=== PATIENT | female | born 1985 | race Caucasian/White ===

== ENCOUNTER 2017-07-24 16:50 | Inpatient (IN) | payer BC ==
[~2017-07-24] VITALS: Ht 157.5 cm; Wt 68.0 kg
[2017-07-24] MEDS ORDERED: KETOROLAC TROMETHAMINE 30 MG/ML VIAL IV STA (17:07)
[2017-07-24] MEDS ORDERED: SODIUM CHLORIDE 0.9% 1000ML 1,000 ML IV STA ×2 (17:07→19:15)
[2017-07-24] MEDS ORDERED: CEFTRIAXONE SOD 1 GM VIAL IM ONE (17:15)
[2017-07-24] MEDS ORDERED: ONDANSETRON HCL 4 MG ORAL DISINTEGRATING TAB PO ONE (17:15)
[2017-07-24] MEDS ORDERED: ACETAMINOPHEN 325 MG TAB PO ONE (17:15)
[2017-07-24 17:41] LABS: CLARITY,URINE CLEAR (CLEAR); COLOR,URINE YELLOW (YELLOW); LEUKOCYTE ESTERASE ,URINE 1+ (NEGATIVE); NITRITE,URINE NEGATIVE (NEGATIVE); PROTEIN,URINE DIPSTICK 2+ (NEGATIVE)
[2017-07-24 17:42] LABS: BILIRUBIN,URINE NEGATIVE (NEGATIVE); KETONES,URINE NEGATIVE (NEGATIVE); PREGNANCY TEST, URINE NEGATIVE (NEGATIVE); URINE UROBILINOGEN 8 mg/dL (0.2 - 1)
--- NOTE | 2017-07-24 17:43 | Diagnostic Imaging Report ---
PROCEDURE: A single AP view of the chest. COMPARISON: None. INDICATIONS: ABDOMINAL PAIN FINDINGS: Lines/tubes: None. Lungs: The lungs are well inflated and clear. There is no evidence of pneumonia or pulmonary edema. Pleura: There is no pleural effusion or pneumothorax. Heart and mediastinum: The heart and the mediastinum are unremarkable. Bones: No acute bony abnormality. IMPRESSION: 1. No acute cardiopulmonary disease. Dictated by: Carlos Michaels M.D. on 07/24/2017 at 17:47 Electronically approved by: Carlos Michaels M.D. on 07/24/2017 at 17:47
[2017-07-24 17:53] LABS: BACTERIA,URINE FEW /HPF; EPITHELIAL CELLS,URINE FEW /LPF; MUCUS,URINE FEW (RARE)
[2017-07-24 18:13] LABS: BASOPHILS % 0.1 % (0.0-1.0); HEMATOCRIT 31.5 % (34.2-44.1); HEMOGLOBIN 9.7 g/dL (12.0-16.0); LYMPHOCYTES # (AUTO) 0.8 (1.0-3.2); LYMPHOCYTES % 4.6 % (18.0-39.1); MEAN CORPUSCULAR HEMOGLOBIN 22.3 pg (28-32); MEAN CORPUSCULAR HGB CONC 30.8 g/dL (31-35); MEAN CORPUSCULAR VOLUME 72.4 fL (81-99); MONOCYTES # (AUTO) 1.2 (0.2-0.8); MONOCYTES % 7.5 % (4.4-11.3); NEUTROPHILS # (AUTO) 14.1 (2.1-6.9); NEUTROPHILS % 87.2 % (38.7-80.0); PLATELET COUNT 259 x10e3/uL (140-360); RED BLOOD COUNT 4.35 x10e6/uL (3.6-5.1); RED CELL DISTRIBUTION WIDTH 16.6 % (11.7-14.4)
[2017-07-24 18:35] LABS: ALANINE AMINOTRANSFERASE 20 IU/L (0-55); ALBUMIN 3.2 g/dL (3.5-5.0); ALBUMIN/GLOBULIN RATIO 0.6 (0.8-2.0); ALKALINE PHOSPHATASE 124 IU/L (40-150); ANION GAP 15.6 mmol/L (8-16); BLOOD UREA NITROGEN 8 mg/dL (7-26); BUN/CREATININE RATIO 10 (6-25); CALCIUM 9.6 mg/dL (8.4-10.2); CARBON DIOXIDE 25 mmol/L (22-29); CHLORIDE 93 mmol/L (98-107); CREATININE, SERUM 0.83 mg/dL (0.57-1.11); EST GLOMERULAR FILTRATION RATE > 60 ML/MIN (60-); GLUCOSE 122 mg/dL (74-118); LIPASE 13 U/L (8-78); SODIUM 131 mmol/L (136-145)
[2017-07-24 18:38] LABS: POTASSIUM 2.6 mmol/L (3.5-5.1)
[2017-07-24] MEDS ORDERED: POTASSIUM CHLORIDE 20 MEQ TAB CR PO STA (19:15)
--- NOTE | 2017-07-24 20:33 | Diagnostic Imaging Report ---
EXAM: CT Abdomen and Pelvis WITH contrast INDICATION: Left abdominal pain and diarrhea COMPARISON: None. TECHNIQUE: Abdomen and pelvis were scanned utilizing a multidetector helical scanner from the lung base to the ischial tuberosities after administration of IV contrast. Coronal and sagittal reformations were obtained. Routine protocol was performed. Scan was performed when during portal venous phase. IV CONTRAST: 100 mL of Isovue-370 ORAL CONTRAST: Water RADIATION DOSE: Total DLP: 303.81 mGy*cm Estimated effective dose: DLP x 0.015 mSv COMPLICATIONS: None FINDINGS: LINES and TUBES: None. LOWER THORAX: The lungs and airways are normal. HEPATOBILIARY: No focal hepatic lesions. No biliary ductal dilation. GALLBLADDER: No radio-opaque stones or sludge. No wall thickening. SPLEEN: No splenomegaly. PANCREAS: No focal masses or ductal dilatation. ADRENALS: No adrenal nodules KIDNEYS/URETERS: Striated enhancement pattern of both kidneys, left greater than right. No hydronephrosis. Small hypodensities in the right kidney are too small to characterize, but likely represent cysts. No stones. GI TRACT: No abnormal distention, wall thickening, or evidence of bowel obstruction. Appendix is normal. PELVIC ORGANS/BLADDER: Unremarkable. LYMPH NODES: No lymphadenopathy. VESSELS: Unremarkable. PERITONEUM / RETROPERITONEUM: No free air or fluid. BONES: Unremarkable. SOFT TISSUES: Unremarkable. IMPRESSION: Findings suggestive of bilateral pyelonephritis, left worse than right., Signed by: Dr. Francisco J Higgins M.D. on 07/24/2017 8:29 PM
--- NOTE | 2017-07-24 20:46 | Diagnostic Imaging Report ---
EXAM: Right Upper Quadrant Ultrasound INDICATION: Abdominal pain COMPARISON: None. TECHNIQUE: Transverse and longitudinal images of the right upper abdomen were obtained. FINDINGS: Liver: Size: 16.9 cm in the right midclavicular line, borderline enlarged Appearance: Normal echogenicity, smooth contour Mass: No focal masses Gallbladder: Stones/Sludge: None Wall: 0.2 cm Appearance: No wall thickening, pericholecystic fluid or hydrops. Sonographic Ruby's Sign: Negative Bile Ducts: Intrahepatic Ducts: No dilatation Extrahepatic Ducts: Common bile duct measures 0.4 cm, no dilatation Pancreas: Visualized portions of the pancreatic neck and proximal body are normal. Kidneys: Length: Right 9.6 cm Echogenicity: Normal Collecting System: No hydronephrosis Stone: None Cyst/Mass: None Vessels: Aorta: Visualized portions are normal Inferior Vena Cava: Visualized portions are normal Main Portal Vein: 1.2 cm, normal size with hepatopetal flow. Free Fluid: No ascites or pleural effusion IMPRESSION: Borderline hepatomegaly. Otherwise normal right upper quadrant ultrasound. Signed by: Dr. Francisco J Higgins M.D. on 07/24/2017 8:43 PM
[2017-07-24] MEDS ORDERED: CEFTRIAXONE SOD 1 GM VIAL IV SCH (21:00)
[2017-07-24] MEDS ORDERED: ONDANSETRON HCL 4 MG ORAL DISINTEGRATING TAB PO PRN (21:00)
[2017-07-24] MEDS ORDERED: IOPAMIDOL 370 MG/ML 200 ML INFUS..BTL INJ ONE (22:25)
[2017-07-24] MEDS ORDERED: SODIUM CHLORIDE 0.9% 50ML 50 ML ONE (22:25)
[2017-07-24] MEDS: KCL 20MEQ/.9 SOD CHL 1,000 ML IV SCH (22:32)
[2017-07-25] MEDS: ACETAMINOPHEN 325 MG TAB PO PRN ×4 (03:45→20:11)
[2017-07-25] MEDS: KCL 20MEQ/.9 SOD CHL 1,000 ML IV SCH ×3 (06:00→21:00)
[2017-07-25 06:36] LABS: BASOPHILS % 0.3 % (0.0-1.0); HEMATOCRIT 25.8 % (34.2-44.1); LYMPHOCYTES # (AUTO) 0.6 (1.0-3.2); LYMPHOCYTES % 6.4 % (18.0-39.1); MEAN CORPUSCULAR VOLUME 71.1 fL (81-99); MONOCYTES # (AUTO) 0.9 (0.2-0.8); MONOCYTES % 9.5 % (4.4-11.3); NEUTROPHILS # (AUTO) 7.9 (2.1-6.9); NEUTROPHILS % 83.3 % (38.7-80.0); PLATELET COUNT 193 x10e3/uL (140-360); RED BLOOD COUNT 3.63 x10e6/uL (3.6-5.1); RED CELL DISTRIBUTION WIDTH 16.7 % (11.7-14.4)
[2017-07-25 06:56] LABS: ALANINE AMINOTRANSFERASE 24 IU/L (0-55); ALBUMIN 2.3 g/dL (3.5-5.0); ALBUMIN/GLOBULIN RATIO 0.6 (0.8-2.0); ALKALINE PHOSPHATASE 109 IU/L (40-150); ANION GAP 10.1 mmol/L (8-16); BLOOD UREA NITROGEN 8 mg/dL (7-26); BUN/CREATININE RATIO 12 (6-25); CALCIUM 8.4 mg/dL (8.4-10.2); CARBON DIOXIDE 23 mmol/L (22-29); CHLORIDE 101 mmol/L (98-107); CREATININE, SERUM 0.69 mg/dL (0.57-1.11); EST GLOMERULAR FILTRATION RATE > 60 ML/MIN (60-); GLUCOSE 128 mg/dL (74-118); POTASSIUM 3.1 mmol/L (3.5-5.1); SODIUM 131 mmol/L (136-145)
--- OUTSIDE RECORDS SUMMARY | 2017-07-25 08:29 | XMS REPORT ---
Author [facility] Address Unknown Phone Unavailable Care Team Providers Care Web Site Admin Name Role Phone DOMI POPE Unavailable Unavailable Problems This patient has no known problems. Allergies, Adverse Reactions, Alerts This patient has no known allergies or adverse reactions. Medications This patient has no known medications. Results Test Description Test Time Test Comments Text Results Atomic Results Result Comments CHEST SINGLE (PORTABLE) [place] [id number] [place] [address] Patient Name: CRISTIANO CANTU MR #: [id number] : 1985 Age/Sex: 32/F Req #: [id number] Adm Physician: Ordered by: IVETTE SIBLEY FILM OR VIDEOTAPE EDITOR Report #: [id number] Location: ER Room/Bed: Procedure: [id number] DX/CHEST SINGLE (PORTABLE) Exam Date: 07/24/17 Exam Time: 1732 REPORT STATUS: Signed PROCEDURE: A single AP view of the chest. COMPARISON: None. INDICATIONS: ABDOMINAL PAIN FINDINGS: Lines/tubes: None. Lungs: The lungs are well inflated and clear. There is no evidence of pneumonia or pulmonary edema. Pleura: There is no pleural effusion or pneumothorax. Heart and mediastinum: The heart and the mediastinum are unremarkable. Bones: No acute bony abnormality. IMPRESSION: 1. No acute cardiopulmonary disease. Dictated by: Carlos Garcia M.D. on 07/24/2017 at 17:47 Electronically approved by: Carlos Garcia M.D. on 07/24/2017 at 17:47 Dictated By: CARLOS GARCIA MD 46 Transcribed By: LA on 07/24/171746 COPY TO: IVETTE SIBLEY NP CT ABDOMEN/PELVIS W [place] [address] Patient Name: CRISTIANO CANTU MR #: [id number] : 1985 Age/Sex: 32/F Req #: [id number] Adm Physician: Ordered by: IVETTE SIBLEY NP Report #: [id number] Location: ER Room/Bed: Procedure: [id number] CT/CT ABDOMEN/PELVIS W Exam Date: 07/24/17 Exam Time: 1953 REPORT STATUS: Signed EXAM: CT Abdomen and Pelvis WITH contrast INDICATION: Left abdominal pain and diarrhea COMPARISON: None. TECHNIQUE: Abdomen and pelvis were scanned utilizing a multidetector helical scanner from the lung base to the ischial tuberosities after administration of IV contrast. Coronal and sagittal reformations were obtained. Routine protocol was performed. Scan was performed when during portal venous phase. IV CONTRAST: 100 mL of Isovue-370 ORAL CONTRAST: Water RADIATION DOSE: Total DLP: 303.81 mGy*cm Estimated effective dose: DLP x 0.015 mSv COMPLICATIONS: None FINDINGS: LINES and TUBES: None. LOWER THORAX: The lungs and airways are normal. HEPATOBILIARY: No focal hepatic lesions. No biliary ductal dilation. GALLBLADDER: No radio-opaque stones or sludge. No wall thickening. SPLEEN: No splenomegaly. PANCREAS: No focal masses or ductal dilatation. ADRENALS: No adrenal nodules KIDNEYS/URETERS: Striated enhancement pattern of both kidneys, left greater than right. No hydronephrosis. Small hypodensities in the right kidney are too small to characterize, but likely represent cysts. No stones. GI TRACT: No abnormal distention, wall thickening, or evidence of bowel obstruction. Appendix is normal. PELVIC ORGANS/BLADDER: Unremarkable. LYMPH NODES: No lymphadenopathy. VESSELS: Unremarkable. PERITONEUM / RETROPERITONEUM: No free air or fluid. BONES: Unremarkable. SOFT TISSUES: Unremarkable. IMPRESSION: Findings suggestive of bilateral pyelonephritis, left worse than right., Signed by: Dr. Mariia Higgins M.D. on 07/24/2017 8:29 PM Dictated By: MARIIA HIGGINS MD 28 Transcribed By: CARLOS ALBERTO on 07/24/172028 COPY TO: IVETTE SIBLEY NP US GALLBLADDER [place] [address] Patient Name: CRISTIANO CANTU MR #: [id number] : 1985 Age/Sex: 32/F Req #: [id number] Adm Physician: Ordered by: IVETTE SIBLEY FILM OR VIDEOTAPE EDITOR Report #: [id number] Location: ER Room/Bed: Procedure: [id number] US/US GALLBLADDER Exam Date: 07/24/17 Exam Time: 2004 REPORT STATUS: Signed EXAM: Right Upper Quadrant Ultrasound INDICATION: Abdominal pain COMPARISON: None. TECHNIQUE: Transverse and longitudinal images of the right upper abdomen were obtained. FINDINGS: Liver: Size: 16.9 cm in the right midclavicular line, borderline enlarged Appearance: Normal echogenicity, smooth contour Mass: No focal masses Gallbladder: Stones/Sludge: None Wall: 0.2 cm Appearance: No wall thickening, pericholecystic fluid or hydrops. Sonographic Ruby's Sign: Negative Bile Ducts: Intrahepatic Ducts: No dilatation Extrahepatic Ducts: Common bile duct measures 0.4 cm, no dilatation Pancreas: Visualized portions of the pancreatic neck and proximal body are normal. Kidneys: Length: Right 9.6 cm Echogenicity: Normal Collecting System: No hydronephrosis Stone: None Cyst/Mass: None Vessels: Aorta: Visualized portions are normal Inferior Vena Cava: Visualized portions are normal Main Portal Vein: 1.2 cm, normal size with hepatopetal flow. Free Fluid: No ascites or pleural effusion IMPRESSION: Borderline hepatomegaly. Otherwise normal right upper quadrant ultrasound. Signed by: Dr. Mariai Higgins M.D. on 07/24/2017 8:43 PM Dictated By: MARIIA HIGGINS MD 42 Transcribed By: CARLOS ALBERTO on 07/24/172042 COPY TO: IVETTE SIBLEY NP
[2017-07-25 09:00] VITALS: BP 156/96
[2017-07-25 10:28] LABS: ANISOCYTOSIS SLIGHT; BAND NEUTROPHILS % (MANUAL) 2 %; EOSINOPHILS % (MANUAL) 1 % (0-7); LYMPHOCYTES % (MANUAL) 5 % (19-48); MICROCYTOSIS AL; MONOCYTES % (MANUAL) 5 % (3.4-9.0); NEUTROPHILS % (MANUAL) 87 % (40-74); PLATELET ESTIMATE ADEQUATE; PLATELET MORPHOLOGY COMMENT NORMAL; RBC MORPHOLOGY COMMENT NORMAL
[2017-07-25 11:02] LABS: % IRON SATURATION 3 % (15-50); IRON 7 ug/dL (50-170); TOTAL IRON BINDING CAPACITY 263 ug/dL (261-478); TRANSFERRIN 188 mg/dL (180-382)
[2017-07-25] MEDS ORDERED: POTASSIUM CHLORIDE 20 MEQ TAB CR PO ONE (11:30)
[2017-07-25 11:47] VITALS: BP 147/103
[2017-07-25] MEDS ORDERED: POTASSIUM CHLORIDE 20MEQ/100ML 200 ML IV ONE (13:30)
[2017-07-25] MEDS ORDERED: SODIUM CHLORIDE 0.9% 1000ML 1,000 ML ONE (13:33)
[2017-07-25 13:59] VITALS: BP 156/96
[2017-07-25] MEDS ORDERED: PIPER-TAZ 3.375 GM / NS 50ML IV SCH (14:00)
[2017-07-25] MEDS ORDERED: PIPER-TAZ 3.375 GM 50 ML IV SCH (14:00)
[2017-07-25] MEDS: IRON SUCROSE 100 MG in SODIUM CHLORIDE 0.9% 100 ML 100 ML IV SCH (14:22)
[2017-07-25 17:22] VITALS: BP 146/91
[2017-07-25] MEDS ORDERED: MEROPENEM 500MG 500 MG in SODIUM CHLORIDE 0.9% 50ML 50 ML IV SCH (20:00)
[2017-07-25] MEDS: MEROPENEM 500 MG VIAL IV SCH (20:00)
[2017-07-25] MEDS ORDERED: METOPROLOL SUCCINATE 50 MG TAB XL PO ONE (22:15)
[2017-07-25] MEDS ORDERED: IBUPROFEN 600 MG TAB PO STA (22:17)
[2017-07-25] MEDS: TEMAZEPAM 15 MG CAP PO PRN (23:00)
[2017-07-26 00:38] VITALS: BP 161/94
[2017-07-26] MEDS: MEROPENEM 500 MG VIAL IV SCH ×4 (02:00→19:45)
[2017-07-26] MEDS: KCL 20MEQ/.9 SOD CHL 1,000 ML IV SCH (03:34)
[2017-07-26 05:39] VITALS: BP 127/96
[2017-07-26 07:50] VITALS: BP 173/111
[2017-07-26 08:00] VITALS: BP 173/111
[2017-07-26] MEDS ORDERED: METOPROLOL SUCCINATE 50 MG TAB XL PO SCH (09:00)
[2017-07-26] MEDS: ACETAMINOPHEN 325 MG TAB PO PRN ×2 (11:30→17:46)
[2017-07-26] MEDS ORDERED: HYDRALAZINE HCL 20 MG/ML VIAL IV PRN (12:15)
[2017-07-26] MEDS: LOSARTAN POTASSIUM 25 MG TAB PO SCH (12:15)
[2017-07-26] MEDS: IRON SUCROSE 100 MG in SODIUM CHLORIDE 0.9% 100 ML 100 ML IV SCH (14:00)
[2017-07-26 16:00] VITALS: BP 152/91
--- NOTE | 2017-07-26 18:10 | Diagnostic Imaging Report ---
EXAMINATION: CHEST XRAY LINE PLACEMENT INDICATION: \S\PICC line placement \[id number] \S\[id number] COMPARISON: Chest radiograph 07/24/2017 FINDINGS: AP view TUBES and LINES: Right upper extremity PICC tip overlies the cavoatrial junction. LUNGS: Lungs are well inflated. Lungs are clear. There is no evidence of pneumonia or pulmonary edema. PLEURA: No pleural effusion or pneumothorax. HEART AND MEDIASTINUM: The cardiomediastinal silhouette is unremarkable. BONES AND SOFT TISSUES: No acute osseous lesion. Soft tissues are unremarkable. UPPER ABDOMEN: No free air under the diaphragm. IMPRESSION: Right upper extremity PICC tip overlies the cavoatrial junction. No acute thoracic abnormality. Signed by: DR. Brown Lucas MD on 07/26/2017 6:07 PM
[2017-07-26 20:48] VITALS: BP 162/77
[2017-07-26] MEDS ORDERED: IBUPROFEN 600 MG TAB PO PRN (22:00)
[2017-07-27] VITALS (8 sets, daily range): BP systolic 134–162; BP diastolic 88–99
[2017-07-27] MEDS: TEMAZEPAM 15 MG CAP PO PRN (00:11)
[2017-07-27] MEDS: MEROPENEM 500 MG VIAL IV SCH ×4 (01:48→20:16)
[2017-07-27] MEDS: LOSARTAN POTASSIUM 25 MG TAB PO SCH (08:51)
[2017-07-27] MEDS ORDERED: LOSARTAN POTASSIUM 100 MG TAB PO ONE (11:30)
[2017-07-27] MEDS: CLONIDINE HCL 0.1 MG TAB PO PRN ×2 (11:57→20:16)
[2017-07-27] MEDS: IRON SUCROSE 100 MG in SODIUM CHLORIDE 0.9% 100 ML 100 ML IV SCH (14:00)
[2017-07-28 00:20] VITALS: BP 120/75
[2017-07-28] MEDS: MEROPENEM 500 MG VIAL IV SCH ×3 (02:06→14:48)
[2017-07-28 04:15] VITALS: BP 144/88
[2017-07-28 07:58] VITALS: BP_SYST 137
[2017-07-28] MEDS ORDERED: LOSARTAN POTASSIUM 100 MG TAB PO SCH (09:00)
[2017-07-28 11:32] VITALS: BP 137/92
[2017-07-28 12:00] VITALS: BP 133/86
[2017-07-28] MEDS ORDERED: LOSARTAN POTAS100 MG PO (17:16)
[2017-07-28 20:00] VITALS: BP 130/74
--- NOTE | 2017-07-29 09:37 | Discharge Summary ---
FINAL DIAGNOSIS: Extended-spectrum beta lactamase Escherichia coli sepsis present on admission due to acute left greater than right pyelonephritis. SECONDARY DIAGNOSES 1. Uncontrolled hypertension, better. 2. Iron deficiency anemia due to heavy periods. CONSULTANTS: None. PROCEDURES/STUDIES PERFORMED: 1. PICC line placement. 2. Abdominal CT. HISTORY: Per H\T\P. HOSPITAL COURSE: The patient was admitted and it turns out that urine culture grew ESBL E. coli. The patient received 3 days of meropenem here. PICC line was placed. Home health was set up for home IV antibiotics with daily ertapenem for 11 more days to complete a 2 week course. The patient had gestational hypertension before. Here the patient was hypertensive and will go home on losartan. The patient also has confirmed iron deficiency anemia, and she was advised to follow up with [employer]. The patient received intravenous iron while here. The patient was seen and examined today. It took 32 minutes total to discharge this patient. CONDITION ON DISCHARGE: Stable. DISCHARGE MEDICATIONS: Please see medication reconciliation form. FIDEL LIU M.D. Job#: [id number]
== END 2017-07-28 18:43 | disposition home or self-care (01) | DRG 872 ==
LOC: ER 16:50 → MED/SURG 07-25 08:21 → MED/SURG2 07-25 16:27
PROVIDERS: ADMIT Internal Medicine; ATTEND Internal Medicine
PROC: 02HV33Z Insertion of Infusion Device into Superior Vena Cava, Percutaneous Approach (ICD-10-PCS; principal; 2017-07-26)
DX: A41.51 Sepsis due to Escherichia coli [E. coli] (principal); E87.1 Hypo-osmolality and hyponatremia; N10 Acute pyelonephritis; E86.0 Dehydration; D50.9 Iron deficiency anemia, unspecified; I10 Essential (primary) hypertension; B96.20 Unspecified Escherichia coli [E. coli] as the cause of diseases classified elsewhere; Z16.12 Extended spectrum beta lactamase (ESBL) resistance; D64.9 Anemia, unspecified; E87.6 Hypokalemia
CPT/HCPCS: 36415; 71045; 74177; 76705; 80053; 81001; 81025; 83540; 83605; 83690; 84466; 85025; 87040; 87086; 87186; 99284; J0360; J0696; J1756; J1885; J2185; J2543; J3480; J7030; Q9967